=== PATIENT | female | born 1940 | race Caucasian/White ===

== ENCOUNTER 2017-08-08 13:56 | Emergency (ER) | payer MEDICARE, BC ==
[~2017-08-08] VITALS: Ht 157.5 cm; Wt 114.7 kg
[~2017-08-08 13:56] MED LIST: AMYL1CAP60; ESOM40CA PO; FENO145T38 PO; SYN0.075T PO; TRAZ-91 PO
[2017-08-08] MEDS ORDERED: normal saline 1000ML IV soln IVB ONE ×2 (15:40→16:35)
[2017-08-08] MEDS ORDERED: HYDROcodone/acetaminophen 10/325mg tab PO ONE (16:35)
[2017-08-08] MEDS ORDERED: ondansetron 4mg rapidly disintigrating tab PO ONE (16:35)
[2017-08-08] MEDS ORDERED: methylPREDNISolone sod succ 125mg/2ml vial IV ONE (16:35)
[2017-08-08] MEDS ORDERED: famotidine/PF 10 mg/ml inj IV ONE (16:35)
[2017-08-08] MEDS ORDERED: diphenhydrAMINE 50 mg/ml inj IV ONE (16:35)
[2017-08-08 16:36] LABS: BASOPHILS # (AUTO) 0.1 X10'3 (0-0.2); BASOPHILS % (AUTO) 0.4 % (0-1); EOSINOPHILS % (AUTO) 0.1 % (0-6); HEMATOCRIT 36.2 % (35.0-45.0); LYMPHOCYTES # (AUTO) 1.2 X10'3 (1.1-4.8); LYMPHOCYTES % (AUTO) 4.8 % (21-51); MEAN CORPUSCULAR HEMOGLOBIN 27.2 PG (27.0-31.0); MEAN CORPUSCULAR HGB CONC 33.2 % (33.0-36.5); MEAN CORPUSCULAR VOLUME 81.9 FL (78-98); MEAN PLATELET VOLUME 8.5 FL (7.4-10.4); MONOCYTES # (AUTO) 0.4 X10'3 (0-0.9); MONOCYTES % (AUTO) 1.6 % (2-12); NEUTROPHILS # (AUTO) 22.8 X10'3 (1.8-7.7); NEUTROPHILS % (AUTO) 93.1 % (42-75); PLATELET COUNT 405 X10'3 (140-440); RED BLOOD COUNT 4.42 X10'6 (4.20-5.60); RED CELL DISTRIBUTION WIDTH 13.6 % (11.5-14.5); WHITE BLOOD COUNT 24.5 X10'3 (4.5-11.0)
[2017-08-08 16:38] LABS: INR 0.9 INR; PARTIAL THROMBOPLASTIN TIME 26 SECONDS (22-32); PROTHROMBIN TIME 9.7 SECONDS (9.0-12.0)
[2017-08-08 16:39] LABS: ALANINE AMINOTRANSFERASE 18 U/L (12-78); ALBUMIN 3.6 G/DL (3.4-5.0); ALBUMIN/GLOBULIN RATIO 0.9 (1.1-1.5); ALKALINE PHOSPHATASE 61 IU/L (46-116); ANION GAP 17 (8-16); ASPARTATE AMINO TRANSFERASE 11 U/L (10-37); BILIRUBIN,TOTAL 0.4 MG/DL (0.1-1.0); BLOOD UREA NITROGEN 19 MG/DL (7-18); BUN/CREATININE RATIO 21.6 (6.6-38.0); CALCIUM 9.4 MG/DL (8.5-10.1); CHLORIDE 97 MMOL/L (99-107); CREATININE 0.88 MG/DL (0.40-0.90); GLUCOSE 121 MG/DL (70-104); MAGNESIUM 1.6 MG/DL (1.5-2.4); POTASSIUM 4.2 MMOL/L (3.5-5.1); SODIUM 137 MMOL/L (135-145); TOTAL CARBON DIOXIDE 23.3 MMOL/L (24-32); TOTAL PROTEIN 7.5 G/DL (6.4-8.2); eGFR 62 ML/MIN
[2017-08-08] MEDS ORDERED: morphine 4 MG/ML inj SYRINge IV ONE (20:15)
[2017-08-08] MEDS ORDERED: HYDR-565 PO (20:23)
[2017-08-08] MEDS ORDERED: PRED20TA PO (20:23)
[2017-08-08 20:51] VITALS: BP 136/53
== END 2017-08-08 20:55 | disposition left against medical advice (07) ==
LOC: ER 13:56
DX: L51.1 Stevens-Johnson syndrome (principal); K21.9 Gastro-esophageal reflux disease without esophagitis; Z79.899 Other long term (current) drug therapy
CPT/HCPCS: 36415; 71045; 80053; 83605; 83735; 84145; 85025; 85610; 85730; 87040; 96361; 96374; 96375; 99291; 99292; J1200; J2270; J2930; J3490; J7030

== ENCOUNTER → 2022-03-03 | Emergency (ER) | payer MEDICARE, BC ==
[~2022-03-03] VITALS: Ht 160 cm; Wt 54.5 kg
[2022-03-03 07:27] LABS: BASOPHILS % (AUTO) 0.3 % (0-1); EOSINOPHILS % (AUTO) 0.4 % (0-6); HEMATOCRIT 37.2 % (35.0-45.0); HEMOGLOBIN 13.1 g/dl (12.0-16.0); LYMPHOCYTES # (AUTO) 0.7 X10'3 (1.1-4.8); LYMPHOCYTES % (AUTO) 12.6 % (21-51); MEAN CORPUSCULAR HEMOGLOBIN 28.5 PG (27.0-31.0); MEAN CORPUSCULAR HGB CONC 35.1 g/dL (33.0-36.5); MEAN CORPUSCULAR VOLUME 81.2 FL (78-98); MONOCYTES # (AUTO) 0.5 X10'3 (0-0.9); MONOCYTES % (AUTO) 8.6 % (2-12); NEUTROPHILS # (AUTO) 4.5 X10'3 (1.8-7.7); NEUTROPHILS % (AUTO) 78.1 % (42-75); PLATELET COUNT 211 X10'3 (140-440); RED BLOOD COUNT 4.58 X10'6 (4.20-5.60); RED CELL DISTRIBUTION WIDTH 13.8 % (11.5-14.5); WHITE BLOOD COUNT 5.8 X10'3 (4.5-11.0)
[2022-03-03 07:46] LABS: ALANINE AMINOTRANSFERASE 21 U/L (12-78); ALBUMIN 3.6 G/DL (3.4-5.0); ALBUMIN/GLOBULIN RATIO 1.1 (1.1-1.5); ALKALINE PHOSPHATASE 60 IU/L (46-116); ANION GAP 20 (8-16); ASPARTATE AMINO TRANSFERASE 22 U/L (10-37); BILIRUBIN,TOTAL 0.4 MG/DL (0.1-1.0); BLOOD UREA NITROGEN 35 MG/DL (7-18); CALCIUM 8.3 MG/DL (8.5-10.1); CHLORIDE 90 MMOL/L (99-107); GLUCOSE 108 MG/DL (70-104); MAGNESIUM 1.7 MG/DL (1.5-2.4); SODIUM 130 MMOL/L (135-145); TOTAL CARBON DIOXIDE 19.9 MMOL/L (24-32); eGFR 36 ML/MIN
[2022-03-03 07:53] LABS: POTASSIUM 2.7 MMOL/L (3.5-5.1)
[2022-03-03] MEDS: potassium Cl 20 mEq SR tablet PO STA (08:16)
[2022-03-03] MEDS: ringers solution, lacted 1,000 ML IV ONE (09:24)
[2022-03-03 10:20] VITALS: BP 135/67
[2022-03-03 11:09] LABS: ALBUMIN 2.9 G/DL (3.4-5.0); ANION GAP 13 (8-16); BLOOD UREA NITROGEN 31 MG/DL (7-18); BUN/CREATININE RATIO 27.2 (6.6-38.0); CALCIUM 7.6 MG/DL (8.5-10.1); CHLORIDE 93 MMOL/L (99-107); CREATININE 1.14 MG/DL (0.40-0.90); GLUCOSE 105 MG/DL (70-104); POTASSIUM 3.2 MMOL/L (3.5-5.1); SODIUM 129 MMOL/L (135-145); TOTAL CARBON DIOXIDE 23.5 MMOL/L (24-32); eGFR 46 ML/MIN
--- NOTE | 2022-03-03 11:54 | NUR ---
patient up out of bed to bedside chair, pulled IV. PT requesting to go home. RN made aware
[2022-03-03] MEDS: POTASSIUM BICARB 20meq eff tab 20 MEQ TABLET.EFF PO ONE (11:55)
== END | disposition home or self-care (01) ==
LOC: ER 05:32
DX: U07.1 COVID-19 (principal); E86.0 Dehydration; K21.9 Gastro-esophageal reflux disease without esophagitis; Z79.899 Other long term (current) drug therapy
CPT/HCPCS: 36415; 71045; 80048; 80053; 83735; 83880; 84145; 85025; 87811; 93005; 96360; 99285; J7120